=== PATIENT | female | born 2000 | race Two or more races ===

== ENCOUNTER 2024-07-08 08:08 | Outpatient (RCR) | payer BC, SELFPAY ==
--- NOTE | 2024-07-08 08:58 | CTCFLWUP_ITS ---
Abdiel James [facility] [address] [place], [place] [address] FOLLOW-UP NOTE Date: 07/08/2024 MR#: [id number] Name: ENMA BARLOW : 2000 Dx: C73 Malignant neoplasm of thyroid gland Identification. Patient with [id number] 2.5 x 2.3 x 1.3 cm right thyroid lobe with 3 nodes involved reg ionally total thyroidectomy performed 12/23/2021. No involvement of left thyroid. 1 benign parathyro id removed. Underwent 30 mCi of radioactive iodine 04/10/2022 with total of iodine scan later 04/17/2022 2 foci of uptake mid neck. CT of neck with IV contrast 04/25/2020 showed no evidence of met disease or recurrent tumor. Ultrasound of thyroid 06/14/2023 showed no nodules or solid in thyroid bed. Most recent ultrasound 02/14/2024 showed no mass or pathological cervical lymphadenopathy. Patient is currently on 125 mcg a day. Most recent labs 05/29/2024 TSH mildly elevated at 17.8 T4 1. 6 With thyroglobulin antibody less than 1.0 thyroglobulin 1.2 Calcium 01/16/2024 was a bit low at 8.4. Patient has been prescribed Citracal and thyroid medications but admits to occasionally having missed the daily dosages. A#!. Stage I papillary thyroid cancer status post total thyroidectomy 12/19/2021. #2. Radioactive iodine 30 mCi, with subsequent scans including total body iodine scan and CT scan an d most recently ultra scan showed no evidence of recurrence or mets. #3. Patient will need constant monitoring of her thyroid functions and CMP including calcium. #4 As she is low risk stage I I believe she could be followed by her primary care physician. #5. Recommend thyroid function test T4 TSH thyroglobulin thyroglobulin antibody every 3 - 6 months to make sure she stays euthyroid and thyroglobulin and thyroglobulin antibody remains low. #6. Keep patient on current level of Citracal and 125 mcg of Synthroid which could be adjusted as ne eded. I will check her labs today, and adjust as needed. #6. Ultrasound once a year or more frequently if needed for concerns about recurrence #7. I will see her again as needed or an annual basis. #8. Patient had to miss work this morning to see me today. . Cc: [facility] Electronically signed by: Og Grubbs M.D. 07/08/2024 8:56 AM
== END 2024-07-25 23:59 | disposition home or self-care (01) ==
LOC: SCTC 08:08
PROVIDERS: PCP Family Medicine; Referring Provider Family Medicine; Visit Provider Radiology Therapeutic Radiology
DX: C73 Malignant neoplasm of thyroid gland (principal); E89.0 Postprocedural hypothyroidism; Z79.890 Hormone replacement therapy
CPT/HCPCS: 99213; G0463

== ENCOUNTER 2024-12-10 10:11 | Outpatient (RCR) | payer BC, SELFPAY ==
--- NOTE | 2024-12-10 11:49 | CTCFLWUP_ITS ---
Abdiel James [facility] [address] [place], [place] [address] FOLLOW-UP NOTE Date: 12/10/2024 MR#: [id number] Name: GRETA BARLOW : 2000 Dx: C73 Malignant neoplasm of thyroid gland Identification. Patient with pT2 pN1a 2.5cm 2.3 cm 1.3 cm right thyroid lobe with 3 nodes involved regionally total thyroidectomy performed 12/23/2021. No involvement left thyroid. 1 benign parathyroid removed. Underwent 30 mCi of radioactive iodine 04/10/2022 with total iodine scan 04/17/2022 2 foci of uptake in mid neck. CT neck IV contrast 04/25/2020 showed no evidence of mass disease or recurrent tumor. Ultrasound of thyroid 06/14/2023 showed no nodules or solid in thyroid bed. Most recent ultrasound 02/13/2024 showed no mass or pathological cervical lymphadenopathy. Most recent labs December 01, 2024 show normal calcium TSH 4.52 slightly elevated and T4 1.67. Thyroid antibody less than 1.0 thyroglobulin by CHRISTOPHER 1.5 Patient working in a dental clinic. Feels well. No sign of recurrence in her neck. A#1. Told patient to increase Synthroid to 137 mcg. A#2. Patient has stage I papillary thyroid carcinoma and likely already cured. A#3. For low risk patients such as Greta I believe primary provider can follow patient, and me seeing only annually or as needed. A#4. Recommend thyroid function test T4 TSH thyroglobulin globin antibody every 3 to 6 months make sure she stays euthyroid and thyroglobulin thyroglobulin antibody remains low. A#5. CMP drawn regularly as well and make sure her calcium remains normal level as well. A#6. Ultrasound once a year for next 3 years, or more frequently if needed for concerns about recurrence. A#7. I will see her again as needed or at an annual basis. [facility] Electronically signed by: Og Grubbs M.D. 12/10/2024 11:46 AM
== END 2024-12-23 23:59 | disposition home or self-care (01) ==
LOC: SCTC 10:11
PROVIDERS: PCP Family Medicine; Referring Provider Family Medicine; Visit Provider Radiology Therapeutic Radiology
DX: C73 Malignant neoplasm of thyroid gland (principal); E89.0 Postprocedural hypothyroidism; Z79.890 Hormone replacement therapy
CPT/HCPCS: 99213; G0463